=== PATIENT | female | born 1985 | race Two or more races ===

== ENCOUNTER 2024-05-26 15:31 | Outpatient (CLI) | payer OTHER | END 2024-05-26 15:39 | disposition home or self-care (01) | LOC: LAB 15:31 | DX: J11.1 Influenza due to unidentified influenza virus with other respiratory manifestations (principal) ==

== ENCOUNTER 2024-05-28 13:34 | Outpatient (CLI) | payer OTHER | END 2024-05-28 13:36 | disposition home or self-care (01) | LOC: PRENATAL 13:34 | PROVIDERS: ATTEND Obstetrics & Gynecology Maternal & Fetal Medicine | DX: O44.00 Complete placenta previa NOS or without hemorrhage, unspecified trimester (principal); O09.529 Supervision of elderly multigravida, unspecified trimester; O34.10 Maternal care for benign tumor of corpus uteri, unspecified trimester; Z3A.20 20 weeks gestation of pregnancy ==

== ENCOUNTER → 2024-08-20 08:48 | Outpatient (CLI) | payer OTHER ==
[~2024-08-20 08:48] MED LIST: HUMULIN N100 UNIT/1 SUBCUTANEO
== END | disposition home or self-care (01) ==
LOC: PRENATAL 08:48
PROVIDERS: ATTEND Obstetrics & Gynecology Maternal & Fetal Medicine
DX: O26.849 Uterine size-date discrepancy, unspecified trimester (principal); O36.8199 Decreased fetal movements, unspecified trimester, other fetus; O09.529 Supervision of elderly multigravida, unspecified trimester; O34.10 Maternal care for benign tumor of corpus uteri, unspecified trimester; O36.60X0 Maternal care for excessive fetal growth, unspecified trimester, not applicable or unspecified; O99.019 Anemia complicating pregnancy, unspecified trimester; O24.419 Gestational diabetes mellitus in pregnancy, unspecified control; Z3A.34 34 weeks gestation of pregnancy

== ENCOUNTER → 2024-08-24 08:44 | Outpatient (CLI) | payer OTHER | END | disposition home or self-care (01) | LOC: PRENATAL 08:44 | PROVIDERS: ATTEND Obstetrics & Gynecology Maternal & Fetal Medicine | DX: Z76.1 Encounter for health supervision and care of foundling (principal) ==

== ENCOUNTER 2024-09-15 15:13 | Outpatient (CLI) | payer OTHER | END 2024-09-15 15:14 | disposition home or self-care (01) | LOC: PRENATAL 15:13 | PROVIDERS: ATTEND Obstetrics & Gynecology Maternal & Fetal Medicine | DX: O26.849 Uterine size-date discrepancy, unspecified trimester (principal); O36.8199 Decreased fetal movements, unspecified trimester, other fetus; O09.529 Supervision of elderly multigravida, unspecified trimester; O34.10 Maternal care for benign tumor of corpus uteri, unspecified trimester; O36.60X0 Maternal care for excessive fetal growth, unspecified trimester, not applicable or unspecified; O99.019 Anemia complicating pregnancy, unspecified trimester; O24.419 Gestational diabetes mellitus in pregnancy, unspecified control; Z3A.37 37 weeks gestation of pregnancy ==

== ENCOUNTER 2024-09-30 05:55 | Inpatient (IN) | payer OTHER ==
[~2024-09-30] VITALS: Ht 157.5 cm; Wt 72.6 kg
[2024-09-30 06:07] VITALS: BP 116/67
[2024-09-30] MEDS ORDERED: MAXFE CAPLET1 EAC1 PO (06:29)
[2024-09-30] MEDS ORDERED: [UNRECOGNIZED DRUG - OTHER] PO (06:29)
[2024-09-30] MEDS ORDERED: RINGERS SOLUTION,LACTATED 1,000 ML IV SCH (06:45)
[2024-09-30 06:48] LABS: BASO % 0.3 % (0.1-1.2); EOS # 0.04 (0.04-0.54); EOS % 0.6 % (0.7-7.0); LYMPH # 2.05 (1.18-3.74); LYMPH % 30.9 % (19.3-53.1); MEAN PLATELET VOLUME 9.80 fl (9.4-12.4); MONO # 0.52 (0.24-0.82); MONO % 7.8 % (4.7-12.5); NEUT # 3.99 (1.56-6.13); NEUT % 60.2 % (34.0-71.1); RED CELL DISTRIBUTION WIDTH 17.2 % (11.6-14.4)
[2024-09-30 06:57] LABS: URINE APPEARANCE Clear; URINE BILIRRUBIN Negative (NEGATIVE); URINE BLOOD NHT; URINE COLOR Yellow; URINE GLUCOSE Negative (NEGATIVE); URINE LEUKOCYTE Moderate; URINE NITRATE Negative; URINE PROTEIN Trace (NEGATIVE); URINE UROBILINOGEN 1.0 E.U./dl
[2024-09-30 07:00] LABS: URINE BACTERIA 2223.4 uL (0.0-1933); URINE CAST 1.75 uL (0.0-1.40); URINE EPITHELIAL CELLS 32.7 uL (0.0-38.8); URINE RBC 2.3 uL (0.0-20.8); URINE WBC 76.4 uL (0.0-23.2)
[2024-09-30 07:05] LABS: URINE KETONE 80 (NEGATIVE)
[2024-09-30 07:13] LABS: INR 0.96
[2024-09-30 07:14] VITALS: BP 106/68
[2024-09-30] MEDS ORDERED: OXYTOCIN 500 ML IV SCH (07:30)
[2024-09-30 07:40] LABS: ALT/SGPT 17.0 U/L (12-78); AST/SGOT 13.0 U/L (15-37); BILIRUBIN TOTAL 0.41 mg/dL (0.3-1.2); BUN CREA RATIO 16.0 (7.0-25.0); CREATININE SERUM 0.44 mg/dL (0.55-1.02); GFR 157.58; GLOBULINA 3.4 G/DL (2.4-3.5); GLUCOSE FASTING 93.0 mg/dL (65-100); OSMOLALITY SERUM 273.0 MOSM/KG (275-295)
[2024-09-30 12:22] VITALS: BP 108/73
[2024-09-30 15:11] VITALS: BP 113/76
[2024-09-30] MEDS ORDERED: DEXTROSE 5%-LACTATED RINGERS 1,000 ML IV ONE (15:45)
[2024-09-30] MEDS ORDERED: CEFAZOLIN SODIUM 1,000 MG VIAL ONE (17:29)
[2024-09-30] MEDS ORDERED: ERYTHROMYCIN BASE OPHT 1GM EACH TUBE OP ONE (17:54)
[2024-09-30] MEDS ORDERED: OXYTOCIN 10 UNITS/ML VIAL ONE ×2 (17:54→21:58)
[2024-09-30] MEDS ORDERED: CEFAZOLIN SODIUM 1,000 MG VIAL IV SCH (18:00)
[2024-09-30] MEDS ORDERED: OXYTOCIN 1,000 ML IV SCH (19:45)
[2024-09-30] MEDS ORDERED: ONDANSETRON HCL 2 MG/ML VIAL IV PRN (19:45)
[2024-09-30] MEDS ORDERED: MORPHINE SULFATE 4 MG/ML CARTRIDGE IV PRN (19:45)
[2024-09-30] MEDS ORDERED: SIMETHICONE 125 MG CAPSULE PO SCH (21:00)
[2024-09-30] MEDS ORDERED: MORPHINE SULFATE 4 MG/ML VIAL IV ONE (21:55)
[2024-09-30 22:33] VITALS: BP 100/63
[2024-09-30] MEDS ORDERED: KETOROLAC TROMETHAMINE 30 MG VIAL IV PRN (23:00)
[2024-10-01 02:49] VITALS: BP 104/62
[2024-10-01 03:54] LABS: BASO % 0.2 % (0.1-1.2); EOS # 0.00 (0.04-0.54); EOS % 0.0 % (0.7-7.0); LYMPH # 0.73 (1.18-3.74); LYMPH % 6.7 % (19.3-53.1); MEAN PLATELET VOLUME 10.50 fl (9.4-12.4); MONO # 0.72 (0.24-0.82); MONO % 6.6 % (4.7-12.5); NEUT # 9.40 (1.56-6.13); NEUT % 86.2 % (34.0-71.1); RED CELL DISTRIBUTION WIDTH 17.1 % (11.6-14.4)
[2024-10-01] MEDS ORDERED: ACETAMINOPHEN WITH CODEINE 1 UDTAB TABLET PO PRN (08:30)
[2024-10-01] MEDS ORDERED: NAPROXEN 500 MG TABLET PO PRN (08:30)
[2024-10-01 08:59] VITALS: BP 93/62
[2024-10-01 16:21] VITALS: BP 104/64
[2024-10-02] VITALS: BP 94/56
[2024-10-02 08:17] VITALS: BP 114/70
[2024-10-02 16:24] VITALS: BP 114/74
[2024-10-02 20:19] VITALS: BP 119/83
[2024-10-03 01:00] VITALS: BP 102/68
[2024-10-03] MEDS ORDERED: NAPR500T14 PO (06:54)
[2024-10-03] MEDS ORDERED: Tylenol #3 PO (06:54)
[2024-10-03 07:55] VITALS: BP 127/83
== END 2024-10-03 10:10 | disposition home or self-care (01) | DRG 788 ==
LOC: LDR 05:55 → O/R 19:29 → OB/GYN 19:55
PROVIDERS: ADMIT Obstetrics & Gynecology; ATTEND Obstetrics & Gynecology
PROC: 4A1HXCZ Monitoring of Products of Conception, Cardiac Rate, External Approach (ICD-10-PCS; 2024-09-30)
PROC: 10D00Z1 Extraction of Products of Conception, Low, Open Approach (ICD-10-PCS; principal; 2024-09-30 18:00)
DX: O82 Encounter for cesarean delivery without indication (principal); O62.1 Secondary uterine inertia; O69.81X0 Labor and delivery complicated by cord around neck, without compression, not applicable or unspecified; O24.424 Gestational diabetes mellitus in childbirth, insulin controlled; Z3A.38 38 weeks gestation of pregnancy; Z37.0 Single live birth